=== PATIENT | female | born 1965 | race American Indian/Alaskan Native ===

== ENCOUNTER 2017-08-05 05:58 | Observation (INO) | payer OTHER ==
[2017-08-03 10:49] LABS: Basophils % (Auto) 0.7 % (0.0-1.8); Eosinophils # (Auto) 0.1 K/mm3 (0.0-0.4); Hematocrit 43.3 % (30.3-42.9); Hemoglobin 14.2 gm/dl (10.1-14.3); Lymphocytes # (Auto) 2.6 K/mm3 (1.2-5.4); Lymphocytes % (Auto) 49.4 % (13.4-35.0); Mean Corpuscular HGB Conc 33 % (30-34); Mean Corpuscular Hemoglobin 30 pg (28-32); Mean Corpuscular Volume 92 fl (79-97); Monocytes # (Auto) 0.3 K/mm3 (0.0-0.8); Monocytes % (Auto) 5.9 % (0.0-7.3); Platelet Count 294 K/mm3 (140-440); Red Blood Count 4.68 M/mm3 (3.65-5.03); Red Cell Distribution Width 14.4 % (13.2-15.2)
--- NOTE | 2017-08-03 11:08 | Anesthesia Consultation ---
Anesthesia Consult and Med Hx Date of service: 08/03/17 - Airway Anesthetic Teeth Evaluation: Good ROM Head & Neck: Adequate Mental/Hyoid Distance: Adequate Mallampati Class: Class I Intubation Access Assessment: Good - Pulmonary Exam CTA: Yes - Cardiac Exam Cardiac Exam: RRR - Pre-Operative Health Status ASA Pre-Surgery Classification: ASA1, ASA2 Proposed Anesthetic Plan: General - Pulmonary Hx Smoking: Yes - Central Nervous System Hx Psychiatric Problems: No - Other Systems Hx Alcohol Use: Yes (Beer-daily) Hx Cancer: No
--- NOTE | 2017-08-04 16:33 | History and Physical Report ---
History of Present Illness Date of examination: 08/03/17 Date of admission: 08/05/2017 Chief complaint: dysfunctional uterine bleeding and fibroids History of present illness: 51y/o with dysfunctional uterine bleeding. The patient has a known history of uterine fibroids. Most recent sonogram demonstrated multiple small myomas and a 2.9cm left adnexal mass. She has a history of a prior myomectomy. The elects for definitive surgical management. Patient has been reassessed/reevaluated/re-examined. H&P has been reviewed. No interval changes. Past History Past Medical History: thyroid disease, other (Leiomyoma) Past Surgical History: myomectomy, other (thyroidectomy) [employer] History: fibroids - Obstetrical History : 2 Para: 2 Hx # Term Pregnancies: 1 Number of Pregnancies: 1 Spontaneous Abortions: 0 Induced : 0 Number of Living Children: 2 Medications and Allergies Allergies Allergy/AdvReac Type Severity Reaction Status Date / Time Penicillins Allergy Anaphylaxis Verified 07/29/17 11:37 Home Medications Medication Instructions Recorded Confirmed Last Taken Type Ibuprofen [Motrin] 800 mg PO Q8HR PRN 07/29/17 07/29/17 Unknown History Active Meds: Active Medications Lactated Ringer's (Lactated Ringers) 1,000 mls @ 42 mls/hr IV DIRECT DIGNA Review of Systems All systems: negative Genitourinary: vaginal bleeding, pelvic pain - Vital Signs Vital signs: Vital Signs Temp Pulse Resp BP 98.9 F 88 18 130/78 08/03/17 10:25 08/03/17 10:25 08/03/17 10:25 08/03/17 10:25 Temp Pulse Resp BP Pulse Ox 98.9 F 88 18 130/78 08/03/17 10:25 08/03/17 10:25 08/03/17 10:25 08/03/17 10:25 - Physical Exam Breasts: Positive: deferred Cardiovascular: Regular rate Lungs: Positive: Clear to auscultation Abdomen: Positive: normal appearance Results Result Diagrams: 08/03/17 10:30 All other labs normal. Assessment and Plan - Patient Problems (1) Leiomyoma Current Visit: No Status: Acute Plan to address problem: scheduled for a robotic hysterectomy and left salpingoophorectomy (2) Dysfunctional uterine bleeding Current Visit: No Status: Acute (3) Adnexal mass Current Visit: No Status: Acute
[~2017-08-05 05:58] MED LIST: CLEOCIN 600 MG/50 mL 600 MG/50 ML BAG IV SCH; GARAMYCIN 120 MG in NACL 0.9% 100 ML IV SCH; GARAMYCIN/NS 120MG/100ML 120 MG/100 ML BAG IV SCH; LACTATED RINGERS 1,000 ML IV SCH; MARCAINE 0.5% INFILTRATI NR; NACL P/F VIAL (10 ML) INFILTRATI NR; SUBLIMAZE IV ONE
[2017-08-05] MEDS ORDERED: SUBLIMAZE IV ONE (06:38)
[2017-08-05] MEDS ORDERED: NACL BACTERIOSTATIC INFILTRATI ONE (06:44)
[2017-08-05] MEDS ORDERED: GARAMYCIN 120 MG in NACL 0.9% 100 ML IV ONE (06:45)
--- NOTE | 2017-08-05 07:14 | Anesthesia Day of Surgery ---
Anesthesia Day of Surgery - Day of Surgery Patient Examined: Yes Patient H&P Reviewed: Yes Patient is NPO: Yes
[2017-08-05] MEDS ORDERED: NEOSPORIN GU IR ONE ×2 (07:20→10:00)
[2017-08-05] MEDS ORDERED: MARCAINE 0.25% INFILTRATI ONE (07:21)
[2017-08-05] MEDS ORDERED: DECADRON ONE (07:22)
[2017-08-05] MEDS ORDERED: DIPRIVAN 10 MG/ML IV ONE (07:30)
[2017-08-05] MEDS ORDERED: VERSED IV NR (07:30)
[2017-08-05] MEDS ORDERED: ZEMURON IV ONE (07:31)
[2017-08-05] MEDS ORDERED: XYLOCAINE MPF 2% ONE (07:31)
[2017-08-05] MEDS ORDERED: DILAUDID ONE (07:31)
[2017-08-05] MEDS ORDERED: GELFOAM POWDER 1GM MM ONE (07:38)
[2017-08-05] MEDS ORDERED: THROMBIN (BOVINE) TP ONE (07:38)
[2017-08-05] MEDS ORDERED: NEO SYNEPHRINE/NS Syringe(OR USE) IV ONE (08:49)
[2017-08-05] MEDS ORDERED: ePHEDrine SULFATE ONE (09:13)
[2017-08-05] MEDS ORDERED: ZOFRAN ONE ×2 (09:45)
[2017-08-05] MEDS ORDERED: TORADOL ONE (09:46)
[2017-08-05] MEDS ORDERED: ROBINUL ONE (09:51)
[2017-08-05] MEDS ORDERED: NEOSTIGMINE ONE (09:52)
--- NOTE | 2017-08-05 09:54 | Operative Report ---
Operative Report Operative Report: Date of surgery: 08/05/2017 Preoperative diagnoses: Symptomatic uterine fibroids; left ovarian adnexal mass ; chronic pelvic pain; dysfunctional uterine bleeding Postoperative diagnoses: Same as above; pelvic adhesive disease Procedure: Robotic hysterectomy; left salpingo-oophorectomy; right salpingectomy ; extensive lysis of adhesions Surgeon: Zulma Ayers M.D. Cant Hooker: Jose Pierce Anesthesia: Gen. endotracheal anesthesia Estimated blood loss: 50 mL Pathology: Uterus, cervix, left tube and ovary, right tube Indication: 51-year-old 89 with a history of symptomatic uterine fibroids and pelvic pain. The patient has a history of prior myomectomy and elected to undergo definitive surgical management. Procedure: The patient was taken to the operating room and given general endotracheal anesthesia without complication. She is prepped and draped in a normal sterile fashion. A bivalve speculum was placed in the patient's vagina and a single- tooth tenaculum placed on the anterior lip of the cervix. The uterus was sounded with the uterine sound. The cervical os was noted to be significantly stenotic. Multiple attempts were made to dilate the cervix. Eventually A Zuse uterine manipulator was placed in the bivalve speculum was then removed. Attention was then turned to the patient's abdomen where a 12 millimeter supra umbilical skin incision was then made. A Veress needle was placed and peritoneal entry was verified water-filled syringe. Insufflation of the peritoneal cavity was performed with CO2 gas. The 12 mm trocar was then placed under direct visualization. An additional 8 mm trocar was placed on the patient 's left and right lateral side just opposite of the supraumbilical trocar. An additional 5 mm right lateral trocar was then placed as the accessory port. The Jose Cruz Rm device was used to close the fascia of the 12 mm incision. The patient was then placed in steep Trendelenburg. The da Shahnaz robot was then engaged. A fenestrated forcep was placed in arm 2 and a monopolar scissors were placed in arm 1. The surgeon then transferred to the surgical console. General survey of the patient's abdomen and pelvis revealed dense small and large bowel adherent to the anterior abdominal wall. There were omental adhesions to the left pelvic sidewall. Multiple intestinal adhesions to the posterior aspect of the uterus. There were also findings of an left adnexal mass. Extensive lysis of adhesions had to be performed with the monopolar scissors in order to visualize the uterus. The extensive adhesions to the posterior aspect of the uterus were released with monopolar scissors along with the adhesions to the left adnexa. Preoperatively the patient requested to retain her right ovary if it appeared normal. The infundibulopelvic ligament was then isolated on the right. The vessel sealer was used to coagulate the mesosalpinx which was then transected. The tube was transected from the ovary on the right. The round ligament was then coagulated and transected also. The vesicouterine peritoneum was then entered from the patient's right side. The uterine vessels were then coagulated with the vessel sealer. The vessels were then transected . Attention was then turned to the patient's left side where the infundibulopelvic ligament and mesosalpinx were again isolated coagulated and transected. The vesical peritoneum was then entered from the left and joined in the midline. Peritoneum was reflected off of the lower uterine segment. Uterine vessels were then coagulated and then transected. The blood supply to the uterus was adequately contained, a posterior colpotomy was made. The V care ring was visualized. Posterior colpotomy was created with the monopolar scissors. The incision was continued circumferentially until anterior colpotomy was made. The cervix and uterus were amputated from the vaginal cuff. The uterus was then removed along with the tubes and left ovary through the vagina and a warm laparotomy sponge was placed and maintain the pneumoperitoneum. The vaginal cuff was then closed in a running fashion with V lock suture. Irrigation of the pelvis was performed. Gelfoam with thrombin was applied to the incision. The skin was then reapproximated with 4-0 Monocryl. The tissue was sent to pathology which included the cervix, uterus, tubes and ovaries. The patient was then successfully extubated. She was then taken to the recovery room in stable condition. All sponge laps and needle counts were correct x2.
[2017-08-05] MEDS ORDERED: NACL 0.9% IR ONE ×2 (10:00)
[2017-08-05] MEDS ORDERED: NARCAN 0.4 MG/1 ML IV PRN (10:04)
[2017-08-05] MEDS ORDERED: MOTRIN PO PRN (10:05)
[2017-08-05] MEDS ORDERED: MILK OF MAGNESIA PO PRN (10:05)
[2017-08-05] MEDS ORDERED: TYLENOL PO PRN (10:05)
[2017-08-05] MEDS ORDERED: ZOFRAN IV PRN ×2 (10:05→18:24)
[2017-08-05] MEDS ORDERED: PERCOCET 5/325 PO PRN (10:05)
[2017-08-05] MEDS ORDERED: MORPHINE PCA 30MG/30ML IV SCH (11:00)
--- NOTE | 2017-08-05 11:30 | Post Anesthesia Evaluation ---
- Post Anesthesia Evaluation Patient Participated: Yes Airway Patent: Yes Stable Respiratory Function: Yes Nausea/Vomiting: No Temp > 96.8F: Yes Pain Manageable: Yes Adequeate Hydration: Yes Anesthesia Complications: No
[2017-08-05] MEDS: D5LR 1,000 ML IV SCH ×2 (16:20→22:31)
[2017-08-05] MEDS: TORADOL IV SCH ×2 (16:20→22:01)
[2017-08-05] MEDS ORDERED: AMBIEN PO PRN (22:00)
[2017-08-06] MEDS: TORADOL IV SCH (05:23)
[2017-08-06 06:14] LABS: Hematocrit 35.8 % (30.3-42.9)
[2017-08-06] MEDS: D5LR 1,000 ML IV SCH (06:35)
--- NOTE | 2017-08-06 07:57 | Progress Note ---
Assessment and Plan - Patient Problems (1) Leiomyoma Current Visit: No Status: Acute Plan to address problem: The patient is doing well Discharge home once the patient tolerates a regular diet (2) Dysfunctional uterine bleeding Current Visit: No Status: Acute (3) Adnexal mass Current Visit: No Status: Acute Subjective - Subjective Date of service: 08/06/17 Interval history: She reports that her pain is being well controlled. She was tolerating a clear diet without complication. She states that her nausea is improving. Patient reports: appetite normal, voiding normally, pain well controlled Objective - Vital Signs Latest vital signs: Vital Signs Temp Pulse Resp BP BP Pulse Ox 08/06/17 05:38 18 08/06/17 04:05 98.4 F 86 18 123/60 08/06/17 00:00 98.2 F 94 H 20 133/74 08/05/17 22:31 18 08/05/17 22:01 18 08/05/17 20:00 98.5 F 98 H 20 130/70 08/05/17 19:45 98.2 F 111 H 20 125/67 08/05/17 18:26 18 08/05/17 16:15 98.0 F 92 H 18 112/55 97 08/05/17 14:00 18 08/05/17 13:06 97.6 F 95 H 18 130/71 98 08/05/17 11:15 97.7 F 80 16 130/66 97 08/05/17 11:10 97.7 F 81 16 130/66 97 08/05/17 11:00 97.4 F L 80 13 123/69 97 08/05/17 10:45 84 18 125/60 96 08/05/17 10:30 83 19 120/59 97 08/05/17 10:25 80 25 H 126/67 100 08/05/17 10:20 91 H 13 115/63 99 08/05/17 10:15 98.2 F 89 15 110/67 99 Intake and Output 08/05/17 08/06/17 08/06/17 22:59 06:59 14:59 Intake Total 225.035 7254 Output Total 700 1700 Balance 72.917 -340 Intake: IV 021.719 3182 D5lr 1,000 ml @ 125 mls/ 644.116 2679 hr IV DIRECT DIGNA Rx#: [id number] Oral 360 Output: Urine 700 1700 Indwelling Catheter 700 1700 Other: Total, Intake Amount 120 Total, Output Amount 400 800 - Exam Abdomen: Present: normal appearance, soft Incision: Present: normal
--- NOTE | 2017-08-06 07:59 | Discharge Summary ---
Providers - Providers Date of Admission: 08/05/17 10:05 Date of discharge: 08/06/17 Attending physician: ROSSY KELLEY Primary care physician: DARRYL ALAROCN Hospitalization Reason for admission: other (symptomatic uterine warts and pelvic pain) Procedure: other (robotic hysterectomy and left salpingo-oophorectomy and right salpingectomy) Incision: normal Discharge diagnosis: other (symptomatic uterine fibroids) Hospital course: Patient was admitted the day of surgery and underwent a robotic hysterectomy and left salpingo-oophorectomy. Please see operative note for details of surgery. Her postoperative course was uneventful. Condition at discharge: Good Disposition: DC-01 TO HOME OR SELFCARE - Discharge Diagnoses (1) Leiomyoma Status: Acute (2) Dysfunctional uterine bleeding Status: Acute (3) Adnexal mass Status: Acute Plan - Discharge Medications Prescriptions: Docusate Sodium [Colace] 100 mg PO BID PRN #60 capsule PRN Reason: Constipation Ibuprofen [Motrin] 800 mg PO Q8HR PRN #60 tablet PRN Reason: Pain Oxycodone HCl/Acetaminophen [Percocet 7.5/325 mg] 1 each PO Q6HR PRN #45 tablet PRN Reason: Pain - Provider Discharge Summary Activity: no sex for 6 weeks, no heavy lifting 4 weeks, no strenuous exercise Diet: routine Instructions: routine Additional instructions: [] Smoking cessation referral if applicable(refer to patient education folder for contact #) [] Refer to [facility] Booklet Call your doctor immediately for: * Fever > 100.5 * Heavy vaginal bleeding ( >1 pad per hour) * Severe persistent headache * Shortness of breath * Reddened, hot, painful area to leg or breast * Drainage or odor from incision. * Keep incision clean and dry at all times and follow doctor's instructions regarding bathing/showering Follow-up with Dr. Jeter in 4 weeks - Follow up plan
[2017-08-06 14:41] VITALS: BP 140/74
== END 2017-08-06 13:30 | disposition home or self-care (01) ==
LOC: OR 05:58 → OB 10:05
PROVIDERS: ADMIT Obstetrics & Gynecology; ATTEND Obstetrics & Gynecology
DX: D25.9 Leiomyoma of uterus, unspecified (principal); N83.9 Noninflammatory disorder of ovary, fallopian tube and broad ligament, unspecified; N93.8 Other specified abnormal uterine and vaginal bleeding; E07.9 Disorder of thyroid, unspecified; F17.200 Nicotine dependence, unspecified, uncomplicated
CPT/HCPCS: 36415; 58552; 58559; 64450; 84703; 85014; 85018; 85025; 88307; 88342; 96374; 96375; 96376; A4217; A4649; G0378; J1100; J1170; J1580; J1885; J2250; J2270; J2370; J2405; J2704; J2710; J3010; J7120; J7121; S2900

== ENCOUNTER 2017-08-10 15:28 | Emergency (ER) | payer OTHER ==
--- NOTE | 2017-08-10 17:19 | XRay Report ---
FINAL REPORT EXAM: XR CHEST 1V AP HISTORY: Chest Pain TECHNIQUE: upright single view chest PRIORS: None. FINDINGS: Cardiac and mediastinal contours are unremarkable. No focal pulmonary infiltrate is identified. No pleural fluid collection seen. Pulmonary vasculature is unremarkable. IMPRESSION: Negative single-view chest
[2017-08-10 17:28] LABS: Basophils # (Auto) 0.1 K/mm3 (0.0-0.1); Basophils % (Auto) 1.2 % (0.0-1.8); Eosinophils # (Auto) 0.1 K/mm3 (0.0-0.4); Eosinophils % (Auto) 1.8 % (0.0-4.3); Hematocrit 43.6 % (30.3-42.9); Hemoglobin 14.3 gm/dl (10.1-14.3); Lymphocytes # (Auto) 2.8 K/mm3 (1.2-5.4); Lymphocytes % (Auto) 52.9 % (13.4-35.0); Mean Corpuscular HGB Conc 33 % (30-34); Mean Corpuscular Hemoglobin 31 pg (28-32); Mean Corpuscular Volume 94 fl (79-97); Monocytes # (Auto) 0.4 K/mm3 (0.0-0.8); Monocytes % (Auto) 6.9 % (0.0-7.3); Platelet Count 338 K/mm3 (140-440); Red Blood Count 4.66 M/mm3 (3.65-5.03); Red Cell Distribution Width 14.6 % (13.2-15.2)
[2017-08-10 17:39] LABS: INR 1.03 (0.87-1.13)
[2017-08-10 17:55] LABS: Alanine Aminotransferase 9 units/L (7-56); Albumin 4.1 g/dL (3.9-5); BUN/Creatinine Ratio 10; Blood Urea Nitrogen 5 mg/dL (7-17); Calcium 9.4 mg/dL (8.4-10.2); Hemolysis Index 66
[2017-08-10] MEDS ORDERED: SUBLIMAZE IV ONE (18:12)
[2017-08-10] MEDS ORDERED: NACL 0.9% 1000 ML 1,000 ML IV ONE (18:12)
[2017-08-10] MEDS ORDERED: ZOFRAN IV ONE (18:12)
--- NOTE | 2017-08-10 18:12 | Emergency Department Report ---
HPI - General Chief Complaint: Chest Pain Time Seen by Provider: 08/10/17 18:03 - HPI HPI: The patient is a 51-year-old female who presents for evaluation of chest pain and dyspnea, one week status post hysterectomy. She complains of constant midsternal chest pain for the past 4 days, pressure-like in quality, currently moderate in severity, improved with lying flat and exacerbated with sitting up. The patient denies fever, neck pain, parasthesias, dyspnea, cough, hemoptysis, palpitations, dizziness, syncope, unilateral leg swelling, calf muscle pain. Patient also denies cocaine or other stimulant use, history of DVT or PE, or history of cancer. ED Past Medical Hx - Past Medical History Hx Congestive Heart Failure: No Hx Diabetes: No Hx Arthritis: Yes (neck) Hx Headaches / Migraines: Yes (Past hx migraines) Hx Asthma: No Hx COPD: No - Surgical History Additional Surgical History: hysterectomy, fibroidectomy, spinal repair - Social History Smoking Status: Former Smoker Substance Use Type: None - Medications Home Medications: Home Medications Medication Instructions Recorded Confirmed Last Taken Type Ibuprofen [Motrin] 800 mg PO Q8HR PRN 07/29/17 08/05/17 07/29/17 History Docusate Sodium [Colace] 100 mg PO BID PRN #60 capsule 08/06/17 Unknown Rx Ibuprofen [Motrin] 800 mg PO Q8HR PRN #60 tablet 08/06/17 Unknown Rx Oxycodone HCl/Acetaminophen 1 each PO Q6HR PRN #45 tablet 08/06/17 Unknown Rx [Percocet 7.5/325 mg] HYDROcodone/APAP 5-325 [Santa 1 each PO Q6HR PRN #14 tablet 08/10/17 Unknown Rx 5/325] Ondansetron [Zofran TAB] 4 mg PO Q8HR PRN #20 tablet 08/10/17 Unknown Rx ED Review of Systems ROS: Stated complaint: CHEST PAIN/MARILIA Other details as noted in HPI Constitutional: denies: fever ENT: denies: throat or neck pain Respiratory: reports shortness of breath Cardiovascular: reports: chest pain Endocrine: denies unexplained weight loss or gain Gastrointestinal: denies: abdominal pain, nausea Genitourinary: denies: dysuria Musculoskeletal: denies: leg swelling Skin: denies: rash Neurological: denies: headache Hematological/Lymphatic: denies: easy bleeding or easy bruising Psych: denies sadness or hopelessness Physical Exam - Physical Exam Vital Signs: Vital Signs 08/10/17 15:39 Temperature 97.8 F Pulse Rate 74 Respiratory 18 Rate Blood Pressure 133/69 O2 Sat by Pulse 100 Oximetry Physical Exam: General: well-nourished, well-developed, no acute distress Head: Normocephalic, atraumatic Eyes: normal sclera ENT: Mucous membranes are pink and moist Neck: trachea midline, neck supple, No neck stiffness, no cervical adenopathy Respiratory: Breath sounds equal bilaterally, no wheezing, rales, or rhonchi Cardio: S1 and S2 present, no murmurs, rubs, gallops, capillary refill is brisk Abdomen: Normoactive bowel sounds, soft abdomen, no rigidity, no guarding or rebound tenderness Musc: No pitting edema Skin: No rash Neuro: no facial drooping, normal speech Psych: Normal affect ED Course Vital Signs 08/10/17 15:39 Temperature 97.8 F Pulse Rate 74 Respiratory 18 Rate Blood Pressure 133/69 O2 Sat by Pulse 100 Oximetry ED Medical Decision Making - Lab Data Result diagrams: 08/10/17 16:57 08/10/17 16:57 - Medical Decision Making The patient was seen and examined by myself. The patient is placed on a cardiac cath rn and continuous pulse ox. On initial evaluation, the patient was found to be in no distress. Evaluation orders were placed. The patient given pain medicine. As the patient received a recent surgical procedure days ago, as found to have elevated d-dimer, CT angiogram of the chest is ordered to rule out pulmonary embolism. CT scan of the chest was negative for pulmonary embolism, aortic dissection, pericardial disease, or other emergent depressive disease process. CT scan did exhibited and the abdomen, atypical finding post intra-abdominal surgery. The patient was reevaluated and she remains without any abdominal pain. Chest x-ray is negative for pneumothorax, focal consolidation, pulmonary vascular congestion, pleural effusion, or other obvious acute cardiopulmonary disease process. Lab results were non-concerning including levels of troponin, WBC, hemoglobin, hematocrit, electrolytes, renal function. The patient was reevaluated and reported that their symptoms were markedly improved. As the patient has a DEQUAN risk score less than 2, and a well's score less than 2, the patient is at low risk of ACS or pulmonary emboli etiology of their symptoms. The patient is stable for discharge with outpatient follow-up. The patient is given follow-up and return instructions. The patient expressed understanding and agreed with the plan. The patient is discharged in stable condition. Critical care attestation.: If time is entered above; I have spent that time in minutes in the direct care of this critically ill patient, excluding procedure time. ED Disposition Clinical Impression: Acute chest pain Disposition: DC-01 TO HOME OR SELFCARE Is pt being admited?: No Does the pt Need Aspirin: No Condition: Stable Instructions: Chest Pain (ED) Referrals: ROSSY KELLEY MD [Staff Physician] - 3-5 Days Time of Disposition: 19:53
--- NOTE | 2017-08-10 19:02 | Cat Scan Report ---
FINAL REPORT EXAM: CT ANGIO CHEST HISTORY: chest pain TECHNIQUE: CT chest CT angiogram with reconstructions PRIORS: None. FINDINGS: There is no evidence of filling defect within the central pulmonary vasculature to suggest the presence of acute pulmonary embolus. No evidence of mediastinal pathologic lymph node enlargement Heart and great vessels are unremarkable. The aorta is normal in caliber. No focal pulmonary infiltrate identified. No pleural fluid collection seen. There is some linear atelectasis or scarring at the left lung base There are small foci air seen under the diaphragm along the dome of the liver and within Morison's pouch adjacent to liver most consistent with pneumoperitoneum. The visualized upper abdomen no specific etiology identified the CT of the abdomen pelvis is recommended for further evaluation if no history for recent abdominal surgery. IMPRESSION: Pneumoperitoneum. No specific etiology identified Linear atelectasis or scar at the left lung base No CT evidence of acute pulmonary embolus
[2017-08-10 19:14] LABS: Bacteria,Urine 1+ /HPF (Negative); Bilirubin,Urine NEG (Negative); Blood,Urine MOD (Negative); Color,Urine Yellow (Yellow); Mucus,Urine FEW /HPF; Protein,Urine <15 mg/dL mg/dL (Negative); Urobilinogen,Urine < 2.0 mg/dL (<2.0)
[2017-08-10 20:14] VITALS: BP 127/70
== END 2017-08-10 20:30 | disposition home or self-care (01) ==
LOC: ED 15:28
DX: R07.89 Other chest pain (principal); G43.909 Migraine, unspecified, not intractable, without status migrainosus
CPT/HCPCS: 36415; 71045; 71275; 80053; 81001; 84484; 85025; 85379; 85610; 85730; 93005; 93010; 96361; 96374; 96375; 99285; J2405; J3010; J7030; Q9967

== ENCOUNTER 2019-03-03 13:05 | Emergency (ER) | payer OTHER ==
[2019-03-03 13:23] VITALS: BP 142/72
== END 2019-03-03 14:05 | disposition left against medical advice (07) ==
LOC: ED 13:05
DX: T78.40XA Allergy, unspecified, initial encounter (principal); Z53.21 Procedure and treatment not carried out due to patient leaving prior to being seen by health care provider; X58.XXXA Exposure to other specified factors, initial encounter